=== PATIENT | male | born 1980 | race Hispanic/Latino ===

== ENCOUNTER 2018-06-08 13:46 | Emergency (ER) | payer SELFPAY ==
[2018-06-08] MEDS ORDERED: Ketorolac Tromethamine 30 MG/ML VIAL ONE (16:00)
--- NOTE | 2018-06-08 16:56 | RAD ---
XR Lumbar Spine 2 Or 3 View History: [Back pain] Comparison: None. Findings: There are 5 nonrib-bearing lumbar-type vertebrae. No acute fracture or malalignment. Mild n arrowing of the L4/L5 and L5/S1 disc spaces. Paraspinal soft tissues are unremarkable. Impression: No acute fracture or malalignment. Low-grade degenerative changes.
== END 2018-06-08 17:15 | disposition home or self-care (01) ==
LOC: ERS 13:46
DX: S39.012A Strain of muscle, fascia and tendon of lower back, initial encounter (principal); F41.9 Anxiety disorder, unspecified; X50.1XXA Overexertion from prolonged static or awkward postures, initial encounter
CPT/HCPCS: 72100; 96372; J1885